=== PATIENT | male | born 1990 | race African-American/Black ===

== ENCOUNTER 2016-12-08 18:07 | Emergency (ER) | payer SELFPAY ==
--- NOTE | 2016-12-08 19:08 | ER Document Report ---
ED Medical Screen (RME) - General Chief Complaint: Foot Injury Stated Complaint: RIGHT FOOT PAIN Time Seen by Provider: 12/08/16 19:07 Notes: Complaining of right big toe pain. Patient states that he started on the pavement numbness and tingling in his right big toe with pain with ambulation. I have greeted and performed a rapid initial assessment of this patient. A comprehensive ED assessment and evaluation of the patient, analysis of test results and completion of the medical decision making process will be conducted by additional ED providers. TRAVEL OUTSIDE OF THE [place] IN LAST 30 DAYS: No - Related Data Allergies/Adverse Reactions: No Known Allergies Allergy (Verified 12/08/16 18:10) Past Medical History Renal/ Medical History: Denies: Hx Peritoneal Dialysis Psychiatric Medical History: Reports: Hx Anxiety, Hx Depression - Immunizations Immunizations up to date: Yes Hx Diphtheria, Pertussis, Tetanus Vaccination: Yes Physical Exam - Vital signs Vitals: Temp Pulse Resp BP Pulse Ox 98.6 F 81 18 145/63 H 98 12/08/16 18:10 12/08/16 18:10 12/08/16 18:10 12/08/16 18:10 12/08/16 18:10 Course - Vital Signs Vital signs: Temp Pulse Resp BP Pulse Ox 98.6 F 81 18 145/63 H 98 12/08/16 18:10 12/08/16 18:10 12/08/16 18:10 12/08/16 18:10 12/08/16 18:10
[2016-12-08] MEDS ORDERED: NAPROXEN 375 MG TABLET PO ONE (21:18)
--- NOTE | 2016-12-08 21:21 | ER Document Report ---
HPI - HPI Patient complains to provider of: right toe pain Pain Level: 3 Context: Patient is a 26-year-old male who comes emergency department for chief complaint of pain in his right toe and foot area. He states he accidentally jammed the foot and hyper extended to the great toe against a curb on Sunday, he states that he has been continuously standing and working and he has not had a chance to treat the foot or evaluate the foot. Patient denies any other areas of injury including right ankle, right leg, right hip, or back. - CARDIOVASCULAR Cardiovascular: DENIES: Chest pain - DERM Skin Color: Normal, [place] Past Medical History - General Information source: Patient - Social History Smoking Status: Never Smoker Chew tobacco use (# tins/day): No Frequency of alcohol use: None Drug Abuse: Marijuana Family History: Reviewed & Not Pertinent Patient has suicidal ideation: No Patient has homicidal ideation: No Renal/ Medical History: Denies: Hx Peritoneal Dialysis Psychiatric Medical History: Reports: Hx Anxiety, Hx Depression Surgical Hx: Negative - Immunizations Immunizations up to date: Yes Hx Diphtheria, Pertussis, Tetanus Vaccination: Yes Vertical Provider Document - CONSTITUTIONAL General Appearance: WD/WN, No Apparent Distress - INFECTION CONTROL TRAVEL OUTSIDE OF THE [place] IN LAST 30 DAYS: No - HEENT HEENT: Atraumatic, Normocephalic - NECK Neck: Normal Inspection - RESPIRATORY Respiratory: Breath Sounds Normal, No Respiratory Distress O2 Sat by Pulse Oximetry: 98 - CARDIOVASCULAR Cardiovascular: Regular Rate, Regular Rhythm - GI/ABDOMEN Gastrointestinal: Abdomen Soft, Abdomen Non-Tender - BACK Back: Normal Inspection - MUSCULOSKELETAL/EXTREMETIES Musculoskeletal/Extremeties: MAEW, FROM, Tender - Mild soft tissue swelling over the left MTP joint. Very mild tenderness, no pain out of proportion, no erythema, no abnormal heat, normal capillary refill and sensation. Normal lower extremity exam otherwise Course - Re-evaluation Re-evalutation: Mild soft tissue swelling over the left MTP joint where patient had the injury. Very mild tenderness, no pain out of proportion, no erythema, no abnormal heat , normal capillary refill and sensation. X-ray shows no acute abnormality. Discussed treatment of this with patient, patient states understanding and agreement. - Vital Signs Vital signs: Temp Pulse Resp BP Pulse Ox 98.6 F 81 18 145/63 H 98 12/08/16 18:10 12/08/16 18:10 12/08/16 18:10 12/08/16 18:10 12/08/16 18:10 - Diagnostic Test Radiology reviewed: Image reviewed, Reports reviewed Discharge - Discharge Clinical Impression: Injury of right toe Qualifiers: Encounter type: initial encounter Qualified Code(s): S99.921A - Unspecified injury of right foot, initial encounter Condition: Stable Disposition: HOME, SELF-CARE Additional Instructions: Examination is consistent with a sprain of the right great toe at the MTP joint , no fracture is seen on x-ray, no other abnormality is seen on x-ray. Elevate your foot, apply ice to the area 3-4 times a day for 15 minutes, take naproxen anti-inflammatory as directed. Follow-up with primary care. Return to emergency department for any concerning symptoms including worsening swelling, redness, severe pain, etc. Prescriptions: Naproxen 500 mg PO BID #20 tablet Forms: Return to Work
[2016-12-08] MEDS ORDERED: NAPROXEN 250 MG TABLET PO ONE (21:30)
[2016-12-08 21:36] VITALS: BP 118/61
== END 2016-12-08 21:36 | disposition home or self-care (01) ==
LOC: ER 18:07
DX: S99.921A Unspecified injury of right foot, initial encounter (principal); M79.674 Pain in right toe(s); X58.XXXA Exposure to other specified factors, initial encounter
CPT/HCPCS: 99283

== ENCOUNTER 2017-05-04 12:39 | Emergency (ER) | payer SELFPAY ==
[2017-05-04 13:28] VITALS: BP 139/68
--- NOTE | 2017-05-04 14:08 | ER Document Report ---
HPI - HPI Patient complains to provider of: Rash on hands Onset: Other Onset/Duration: Gradual Quality of pain: Burning Severity: Moderate Pain Level: 4 Context: Patient complains of dry itchy rash to hands, mostly to fingers for 2 weeks. 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 He has been employed with this facility for 1 year and this has never happened before. Patient denies history of eczema. Associated Symptoms: None Exacerbated by: Denies Relieved by: Denies Similar symptoms previously: No Recently seen / treated by doctor: No - ROS ROS below otherwise negative: Yes Systems Reviewed and Negative: Yes All other systems reviewed and negative - CONSTITUTIONAL Constitutional: DENIES: Fever - EENT EENT: DENIES: Congestion - NEURO Neurology: DENIES: Headache - CARDIOVASCULAR Cardiovascular: DENIES: Chest pain - RESPIRATORY Respiratory: DENIES: Trouble Breathing - GASTROINTESTINAL Gastrointestinal: DENIES: Abdominal Pain - URINARY Urinary: DENIES: Dysuria - MUSCULOSKELETAL Musculoskeletal: REPORTS: Extremity pain - Hands - DERM Skin Color: Normal Skin Problems: Rash Past Medical History - General Information source: Patient - Social History Smoking Status: Never Smoker Cigarette use (# per day): No Frequency of alcohol use: Occasional Drug Abuse: Marijuana Lives with: Family Family History: Reviewed & Not Pertinent Patient has suicidal ideation: No Patient has homicidal ideation: No Psychiatric Medical History: Reports: Hx Anxiety, Hx Depression Surgical Hx: Negative - Immunizations Immunizations up to date: Yes Hx Diphtheria, Pertussis, Tetanus Vaccination: Yes Vertical Provider Document - CONSTITUTIONAL Agree With Documented VS: Yes Exam Limitations: No Limitations General Appearance: WD/WN, No Apparent Distress - INFECTION CONTROL TRAVEL OUTSIDE OF THE [place] IN LAST 30 DAYS: No - HEENT HEENT: Atraumatic, Normocephalic - RESPIRATORY Respiratory: Breath Sounds Normal, No Respiratory Distress O2 Sat by Pulse Oximetry: 99 - CARDIOVASCULAR Cardiovascular: Regular Rate, Regular Rhythm - MUSCULOSKELETAL/EXTREMETIES Musculoskeletal/Extremeties: No Edema - NEURO Level of Consciousness: Awake, Alert, Appropriate - DERM Integumentary: Warm, Dry, Rash - Dry scaly rash to hands, mostly to fingers. No erythema noted Course - Vital Signs Vital signs: Temp Pulse Resp BP Pulse Ox 98.4 F 68 18 139/68 H 99 05/04/17 13:27 05/04/17 13:27 05/04/17 13:27 05/04/17 13:27 05/04/17 13:27 Discharge - Discharge Clinical Impression: Rash Condition: Good Disposition: HOME, SELF-CARE Additional Instructions: Meds as prescribed Make sure the gloves you are wearing at work are latex free Follow up with your primary care doctor or you may need to see a bed setter if not better after treatment Return as needed Prescriptions: Cephalexin [Cephalexin 500 MG Capsule] 1 cap PO QID #28 cap Prednisone [Deltasone 10 mg Tablet] 10 mg PO ASDIR PRN #21 tablet PRN Reason: Triamcinolone Acetonide 80 gm TP BID #1 cream..g. Forms: Return to Work
== END 2017-05-04 14:15 | disposition home or self-care (01) ==
LOC: ER 12:39
DX: R21 Rash and other nonspecific skin eruption (principal); M79.643 Pain in unspecified hand
CPT/HCPCS: 99283

== ENCOUNTER 2017-12-01 04:31 | Emergency (ER) | payer SELFPAY ==
[2017-12-01] MEDS ORDERED: PENICILLIN V POTASSIUM 500 MG TABLET PO ONE (05:09)
[2017-12-01] MEDS ORDERED: HYDROCODONE/ACETAMINOPHEN 5-325 MG (6 TAB/ER DISP) PO PRN (05:09)
[2017-12-01] MEDS ORDERED: HYDROCODONE/ACETAMINOPHEN 5-325 MG TABLET PO ONE (05:09)
--- NOTE | 2017-12-01 05:15 | ER Document Report ---
ED General - General Chief Complaint: Toothache Stated Complaint: TOOTHACHE Time Seen by Provider: 12/01/17 04:58 Notes: Patient is a 27-year-old male presents with complaint of pain in his right upper wisdom tooth. He says he has had pain there for several months but in the last couple days has become severe and tonight became more severe. He is supposed to see dentist on Sunday and talk about having a tooth extracted on Sunday. Denies any fevers. Denies any significant facial swelling. No difficulty breathing or swallowing. Pain became intractable tonight and that is why he has come to the ER. TRAVEL OUTSIDE OF THE [place] IN LAST 30 DAYS: No - Related Data Allergies/Adverse Reactions: No Known Allergies Allergy (Verified 05/04/17 13:25) Past Medical History - Social History Smoking Status: Never Smoker Frequency of alcohol use: None Drug Abuse: None Family History: Reviewed & Not Pertinent Patient has suicidal ideation: No Patient has homicidal ideation: No Renal/ Medical History: Denies: Hx Peritoneal Dialysis Psychiatric Medical History: Reports: Hx Anxiety, Hx Depression - Immunizations Immunizations up to date: Yes Hx Diphtheria, Pertussis, Tetanus Vaccination: Yes Review of Systems - Review of Systems Notes: My Normal Review Basic REVIEW OF SYSTEMS: CONSTITUTIONAL : Denies fever, chills, or sweats. Denies recent illness. EENT: Dental pain ALL OTHER SYSTEMS REVIEWED AND NEGATIVE. Physical Exam - Vital signs Vitals: Temp Pulse Resp BP Pulse Ox 98.7 F 72 22 H 156/89 H 97 12/01/17 04:37 12/01/17 04:37 12/01/17 04:37 12/01/17 04:37 12/01/17 04:37 - Notes Notes: General Appearance: Well nourished, alert, cooperative, no acute distress, moderate to severe severe obvious discomfort. Vitals: reviewed, See vital signs table. Head: no swelling or tenderness to the head Eyes: PERRL, EOMI, Conjuctiva clear Mouth: No decreasd moisture, patient has right upper wisdom tooth which is coming in somewhat crooked appearing. This appears to be a source of his pain. He does not have much gingival swelling. No facial swelling. He is handling his secretions well. No evidence of impending airway compromise. Throat: No tonsillar inflammation, No airway obstruction, No lymphadenopathy Neck: Supple, no neck swelling Neuro: speech clear, oriented x 3, normal affect, responds appropriately to questions. Course - Re-evaluation Re-evalutation: 12/01/17 06:11 Patient is having very significant pain from his tooth. I will therefore place him on hydrocodone. I informed him and his mother that he should only take this when absolutely necessary as they can be dependent in addicting. They show understanding of this. I encourage him take Motrin for pain. They agree with the plan. Encouraged him follow-up closely with the dentist as scheduled and to return to ER immediately if he has difficulty breathing, difficulty swallowing, or facial swelling. I did look him up on the controlled substance database and is not received any narcotic prescriptions in the last 6 months. Patient agrees with plan will be discharged home. Dictation of this chart was performed using voice recognition software; therefore, there may be some unintended grammatical errors. - Vital Signs Vital signs: Temp Pulse Resp BP Pulse Ox 98.3 F 81 20 148/79 H 97 12/01/17 05:25 12/01/17 05:25 12/01/17 05:25 12/01/17 05:25 12/01/17 05:25 Discharge - Discharge Clinical Impression: Pain, dental Condition: Good Disposition: HOME, SELF-CARE Instructions: Oral Narcotic Medication ([facility]) Additional Instructions: Toothache Your pain is due to dental decay. The tooth must be repaired in order for you to feel better. You will, therefore, be referred to a dentist. Severe swelling or drainage around a tooth usually means a deep dental abscess. This also requires evaluation and treatment by the dentist, but antibiotics may be prescribed while awaiting dental treatment. You should be rechecked immediately if you develop major swelling of the face, increasing pain, a lump in the jaw or gums, headache, or fever. Please take Motrin first for your pain. [place] the [place] for when you have severe unrelenting pain this not help with the Motrin. Only take the [place] when absolutely needed as this medication can become addicting. Do not drive or operate machinery when taking the [place]. Prescriptions: Hydrocodone/Acetaminophen [[place] 5-325 mg Tablet] 1 tab PO Q4 PRN #10 tablet PRN Reason: For Breakthrough Pain Penicillin V Potassium [Penicillin Vk 500 mg Tablet] 500 mg PO BID #14 tablet
[2017-12-01 05:38] VITALS: BP 148/79
== END 2017-12-01 05:26 | disposition home or self-care (01) ==
LOC: ER 04:31
DX: K08.89 Other specified disorders of teeth and supporting structures (principal)
CPT/HCPCS: 99282

== ENCOUNTER 2017-12-08 19:24 | Emergency (ER) | payer SELFPAY ==
[2017-12-08] MEDS ORDERED: BUPIVACAINE HCL 0.5 % INJ/PF 30 ML SDV INJ ONE (20:14)
--- NOTE | 2017-12-08 20:39 | ER Document Report ---
ED General - General Chief Complaint: Headache Stated Complaint: HEADACHE Time Seen by Provider: 12/08/17 20:10 Mode of Arrival: Ambulatory Information source: Patient Notes: 27-year-old male presents with complaints of dental pain and headache. Patient notes he was seen here a few days prior prescription was not filled because the physician or forgotten sign it. Patient notes is the right upper molar Denies any fevers or chills TRAVEL OUTSIDE OF THE [place] IN LAST 30 DAYS: No - HPI Onset: Last week Onset/Duration: Persistent Quality of pain: [place] Severity: Moderate Pain Level: 4 Associated symptoms: Headache, Other Exacerbated by: Food Relieved by: Denies Similar symptoms previously: Yes Recently seen / treated by doctor: Yes - Related Data Allergies/Adverse Reactions: No Known Allergies Allergy (Verified 12/08/17 19:25) Past Medical History - Social History Smoking Status: Never Smoker Cigarette use (# per day): No Chew tobacco use (# tins/day): No Smoking Education Provided: No Family History: Reviewed & Not Pertinent Renal/ Medical History: Denies: Hx Peritoneal Dialysis Psychiatric Medical History: Reports: Hx Anxiety, Hx Depression - Immunizations Immunizations up to date: Yes Hx Diphtheria, Pertussis, Tetanus Vaccination: Yes Review of Systems - Review of Systems Notes: REVIEW OF SYSTEMS: CONSTITUTIONAL : Denies fever, chills, or sweats. Denies recent illness. EENT: Admits to dental pain CARDIOVASCULAR: Denies chest pain. Denies palpitations or racing or irregular heart beat. Denies ankle edema. RESPIRATORY: Denies cough, cold, or chest congestion. Denies shortness of breath, difficulty breathing, or wheezing. GASTROINTESTINAL: Denies abdominal pain or distention. Denies nausea, vomiting , or diarrhea. Denies blood in vomitus, stools, or per rectum. Denies black, tarry stools. Denies constipation. GENITOURINARY: Denies difficulty urinating, painful urination, burning, frequency, blood in urine, or discharge. MUSCULOSKELETAL: Denies back or neck pain or stiffness. Denies joint pain or swelling. SKIN: Denies rash, lesions or sores. HEMATOLOGIC : Denies easy bruising or bleeding. LYMPHATIC: Denies swollen, enlarged glands. NEUROLOGICAL: Admits to headache PSYCHIATRIC: Denies anxiety or stress. Denies depression, suicidal ideation, or homicidal ideation. ALL OTHER SYSTEMS REVIEWED AND NEGATIVE. Dictation was performed using [employer] voice recognition software PHYSICAL EXAMINATION: GENERAL: Well-appearing, well-nourished and in no acute distress. HEAD: Atraumatic, normocephalic. EYES: Pupils equal round and reactive to light, extraocular movements intact, sclera anicteric, conjunctiva are normal. ENT: Nares patent, oropharynx clear without exudates. Moist mucous membranes. Tenderness of the right upper molar NECK: Normal range of motion, supple without lymphadenopathy LUNGS: Breath sounds clear to auscultation bilaterally and equal. No wheezes rales or rhonchi. HEART: Regular rate and rhythm without murmurs ABDOMEN: Soft, nontender, nondistended abdomen. No guarding, no rebound. No masses appreciated. Musculoskeletal: Normal range of motion, no pitting or edema. No cyanosis. NEUROLOGICAL: Cranial nerves grossly intact. Normal speech, normal gait. Normal sensory, motor exams PSYCH: Normal mood, normal affect. SKIN: Warm, Dry, normal turgor, no rashes or lesions noted. Physical Exam - Vital signs Vitals: Temp Pulse Resp BP Pulse Ox 98.7 F 65 16 169/86 H 99 12/08/17 19:31 12/08/17 19:31 12/08/17 19:31 12/08/17 19:31 12/08/17 19:31 Course - Re-evaluation Re-evalutation: 12/08/17 20:39 dental block has resolved all his pain patient no longer crying in room 12/08/17 23:19 12/08/17 23:23 After performing a Medical Screening Examination, I estimate there is LOW risk for a DEEP SPACE INFECTION (e.g., ALEJANDRA'S ANGINA OR RETROPHARYNGEAL ABSCESS), MENINGITIS, INTRACRANIAL HEMORRHAGE, or AIRWAY COMPROMISE, thus I consider the discharge disposition reasonable. Also, there is no evidence or peritonitis, sepsis, or toxicity. I have reevaluated this patient multiple times and no significant life threatening changes are noted. The patient and I have discussed the diagnosis and risks, and we agree with discharging home with close follow-up with the understanding that symptoms and presentations can change. We also discussed returning to the Emergency Department immediately if new or worsening symptoms occur. We have discussed the symptoms which are most concerning (e.g., changing or worsening pain, trouble swallowing or breathing, neck stiffness or fever) that necessitate immediate return. - Vital Signs Vital signs: Temp Pulse Resp BP Pulse Ox 99.8 F 88 16 134/68 H 95 12/08/17 20:47 12/08/17 20:47 12/08/17 19:31 12/08/17 20:47 12/08/17 20:47 Procedures - Additional Procedures infraorbital nerve block Time performed: 21:50 - using 10 cc of lidocaine1% with complete releif no complications Discharge - Discharge Clinical Impression: Pain, dental Headache Qualifiers: Headache type: unspecified Headache chronicity pattern: acute headache Intractability: not intractable Qualified Code(s): R51 - Headache Condition: Stable Disposition: HOME, SELF-CARE Instructions: Toothache ([facility]) Additional Instructions: You must follow-up with dentistry return immediately if there are any other concerns Prescriptions: Clindamycin HCl 300 mg PO Q6 #40 capsule Hydrocodone/Acetaminophen [[place] 5-325 mg Tablet] 1 tab PO Q6 #10 tablet
[2017-12-08 20:49] VITALS: BP 134/68
== END 2017-12-08 20:52 | disposition home or self-care (01) ==
LOC: ER 19:24
DX: K08.89 Other specified disorders of teeth and supporting structures (principal); R51 Headache
CPT/HCPCS: 99283; 64400; J3490

== ENCOUNTER 2018-01-28 19:45 | Emergency (ER) | payer SELFPAY ==
[2018-01-28 20:39] VITALS: BP 148/77
--- NOTE | 2018-01-28 21:30 | ER Document Report ---
ED General - General Chief Complaint: Chest Congestion Stated Complaint: CHEST PAIN Time Seen by Provider: 01/28/18 20:33 Mode of Arrival: Ambulatory Information source: Patient Notes: Chief complaint: Difficulty in swallowing History of complain:( obtained from----patient) 27 years old male who was started on antibiotic for URI, comes in with on and off difficulty in swallowing and burning sensation along the lower part of the chest. Particularly when drinking water or eating food. But the food is going down. No vomiting or nausea or regurgitation. Onset: As above Duration: Last 2 days Severity: Mild to moderate Quality: Dilated Context: As described above Exacerbating factor and relieving factors: As above REVIEW OF SYSTEMS: CONSTITUTIONAL : Denies fever, chills, or sweats. Denies recent illness. EENT: Denies eye, ear, throat, or mouth pain or symptoms. Denies nasal or sinus congestion or discharge. Denies throat, tongue, or mouth swelling or difficulty swallowing. CARDIOVASCULAR: Denies chest pain. Denies palpitations or racing or irregular heart beat. Denies ankle edema. RESPIRATORY: Denies cough, cold, or chest congestion. Denies shortness of breath, difficulty breathing, or wheezing. GASTROINTESTINAL: Denies distention. Denies nausea, vomiting, or diarrhea. Denies blood in vomitus, stools, or per rectum. Denies black, tarry stools. Denies constipation. GENITOURINARY: Denies difficulty urinating, painful urination, burning, frequency, blood in urine, or discharge. FEMALE GENITOURINARY: Denies vaginal bleeding, heavy or abnormal periods, irregular periods. Denies vaginal discharge or odor. MUSCULOSKELETAL: Denies back or neck pain or stiffness. Denies joint pain or swelling. SKIN: Denies rash, lesions or sores. HEMATOLOGIC : Denies easy bruising or bleeding. LYMPHATIC: Denies swollen, enlarged glands. NEUROLOGICAL: Denies confusion or altered mental status. Denies passing out or loss of consciousness. Denies dizziness or lightheadedness. Denies headache. Denies weakness or paralysis or loss of use of either side. Denies problems with gait or speech. Denies sensory loss, numbness, or tingling. Denies seizures. PSYCHIATRIC: Denies anxiety or stress. Denies depression, suicidal ideation, or homicidal ideation. ALL OTHER SYSTEMS REVIEWED AND NEGATIVE. PHYSICAL EXAMINATION: GENERAL: Well-appearing, well-nourished and in no acute distress. HEAD: Atraumatic, normocephalic. EYES: Pupils equal round and reactive to light, extraocular movements intact, conjunctiva are normal. ENT: Nares patent, oropharynx clear without exudates. Moist mucous membranes. NECK: Normal range of motion, supple without lymphadenopathy LUNGS: Breath sounds clear to auscultation bilaterally and equal. No wheezes rales or rhonchi. HEART: Regular rate and rhythm without murmurs ABDOMEN: Soft, nontender, nondistended abdomen. No guarding, no rebound. No masses appreciated. Examination of genitals-deferred Musculoskeletal: Normal range of motion, no pitting or edema. No cyanosis. NEUROLOGICAL: Cranial nerves grossly intact. Normal speech, normal gait. Normal sensory, motor exams PSYCH: Normal mood, normal affect. SKIN: Warm, Dry, normal turgor, no rashes or lesions noted. Dictation was performed using [employer] voice recognition software TRAVEL OUTSIDE OF THE [place] IN LAST 30 DAYS: No - HPI Patient complains to provider of: Dictated - Related Data Allergies/Adverse Reactions: No Known Allergies Allergy (Verified 12/08/17 19:25) Past Medical History - General Information source: Patient, POA - Power of [employer] [place] - Social History Smoking Status: Current Some Day Smoker Cigarette use (# per day): No Chew tobacco use (# tins/day): No Frequency of alcohol use: Rare Drug Abuse: None Lives with: Family Family History: Reviewed & Not Pertinent Patient has suicidal ideation: No Patient has homicidal ideation: No Renal/ Medical History: Denies: Hx Peritoneal Dialysis Psychiatric Medical History: Reports: Hx Anxiety, Hx Depression - Immunizations Immunizations up to date: Yes Hx Diphtheria, Pertussis, Tetanus Vaccination: Yes Review of Systems - Review of Systems Notes: Dictated Physical Exam - Vital signs Vitals: Temp Pulse Resp BP Pulse Ox 98.8 F 78 20 148/77 H 98 01/28/18 20:22 01/28/18 20:22 01/28/18 20:22 01/28/18 20:22 01/28/18 20:22 - Notes Notes: Dictated Course - Vital Signs Vital signs: Temp Pulse Resp BP Pulse Ox 98.8 F 78 20 148/77 H 98 01/28/18 20:22 01/28/18 20:22 01/28/18 20:22 01/28/18 20:22 01/28/18 20:22 - Diagnostic Test Radiology reviewed: Image reviewed - 2 view chest x-ray did not show any infiltration effusion no pneumothorax, Reports reviewed - 2 view chest x-ray did not show any infiltration effusion no pneumothorax Discharge - Discharge Clinical Impression: Dysphagia Qualifiers: Dysphagia type: unspecified Qualified Code(s): R13.10 - Dysphagia, unspecified Condition: Fair Disposition: HOME, SELF-CARE Instructions: Dysphagia ([facility]) Prescriptions: Sucralfate 1 gm PO QID #120 ml
--- NOTE | 2018-01-28 21:32 | RADIOLOGY REPORT (SQ) ---
EXAM DESCRIPTION: CHEST 2 VIEWS COMPLETED DATE/TIME: 01/28/2018 9:09 pm REASON FOR STUDY: Chest pain COMPARISON: 08/31/2015 EXAM PARAMETERS: NUMBER OF VIEWS: two views TECHNIQUE: Digital Frontal and Lateral radiographic views of the chest acquired. RADIATION DOSE: NA LIMITATIONS: none FINDINGS: LUNGS AND PLEURA: No opacities, masses or pneumothorax. No pleural effusion. MEDIASTINUM AND HILAR STRUCTURES: No masses or contour abnormalities. HEART AND VASCULAR STRUCTURES: Heart normal size. No evidence for failure. BONES: No acute findings. HARDWARE: None in the chest. OTHER: No other significant finding. IMPRESSION: NO ACUTE RADIOGRAPHIC FINDING IN THE CHEST. TECHNICAL DOCUMENTATION: JOB ID: [id number] [employer]- All Rights Reserved Reading location - IP/workstation name: [email or web address]
== END 2018-01-28 21:38 | disposition home or self-care (01) ==
LOC: ER 19:45
DX: R13.10 Dysphagia, unspecified (principal); R09.89 Other specified symptoms and signs involving the circulatory and respiratory systems; R07.9 Chest pain, unspecified; F17.200 Nicotine dependence, unspecified, uncomplicated
CPT/HCPCS: 71046; 99284